=== PATIENT | male | born 1980 | race Caucasian/White ===

== ENCOUNTER 2023-07-04 19:23 | Emergency (ER) | payer MEDICAID ==
[~2023-07-04] VITALS: Ht 154.9 cm; Wt 65.8 kg
[2023-07-04 19:54] VITALS: BP 154/96; PULSE 97; RESP 18; TEMP 97.6; O2SAT 98
[2023-07-04] MEDS ORDERED: ONDANSETRON 4 MG ODT PO ONE (22:05)
[2023-07-04] MEDS ORDERED: PANTOPRAZOLE 40 MG TABEC PO ONE (22:05)
[2023-07-04] MEDS ORDERED: DICYCLOMINE HCL LIQUID 20 MG, ALUMINUM HYD/MAG/SIMETHICONE 30 ML, LIDOCAINE VISCOUS 2% ... PO ONE ×3 (22:05)
[2023-07-04] MEDS ORDERED: DICYCLOMINE HCL LIQUID 10 MG/5 ML UDC ONE (22:14)
[2023-07-04] MEDS ORDERED: ALUMINUM HYD/MAG/SIMETHICONE 30 ML UDC ONE (22:14)
[2023-07-04 22:26] LABS: BASOPHILS # (AUTO) 0.1 K/uL (0.00-0.22); BASOPHILS % (AUTO) 1.3 % (0.0-2.0); HEMATOCRIT 39.1 % (36-52); HEMOGLOBIN 13.2 g/dL (12.0-18.0); LYMPHOCYTES # (AUTO) 1.2 K/uL (2.0-11.5); LYMPHOCYTES % (AUTO) 26.7 % (20.5-51.1); MEAN CORPUSCULAR HEMOGLOBIN 30 pg (27-31); MEAN CORPUSCULAR HGB CONC 34 g/dL (33-37); MEAN CORPUSCULAR VOLUME 88.1 fL (80-94); MONOCYTES # (AUTO) 0.4 K/uL (0.8-1.0); MONOCYTES % (AUTO) 8.6 % (1.7-9.3); NEUTROPHILS # (AUTO) 2.9 K/uL (1.8-7.7); NEUTROPHILS % (AUTO) 62.4 % (42.2-75.2); PLATELET COUNT (AUTO) 111 K/uL (140-450); RED BLOOD CELL COUNT(AUTO) 4.43 MIL/uL (4.20-6.10); RED CELL DISTRIBUTION WIDTH 14.1 % (11.6-13.7); WHITE BLOOD COUNT (AUTO) 4.6 K/uL (4.8-10.8)
[2023-07-04 22:48] LABS: ALANINE AMINOTRANSFERASE 112 U/L (12-78); ALBUMIN 3.9 g/dL (3.4-5.0); ALCOHOL, BLOOD 380 mg/dL (<10); ALKALINE PHOSPHATASE 153 U/L (50-136); ANION GAP 14.9 (8-16); ASPARTATE AMINOTRANSFERASE 108 U/L (15-37); CARBON DIOXIDE 26.6 mmol/L (21-32); CHLORIDE 94 mmol/L (98-107); CREATININE 0.6 mg/dL (0.6-1.3); GFR ARICAN-AMERICAN 191 mL/min (>90); GFR NON ARICAN-AMERICAN 158 mL/min (>90); GLUCOSE 150 mg/dL (74-106); LIPASE 93 U/L (16-77); POTASSIUM 3.5 mmol/L (3.5-5.1); SODIUM SERUM 132 mmol/L (136-145); TOTAL PROTEIN, SERUM 8.6 g/dL (6.4-8.2); UREA NITROGEN, BLOOD 2 mg/dL (7-18)
[2023-07-05] MEDS ORDERED: ONDA-188 PO (03:46)
[2023-07-05] MEDS ORDERED: PANT40EC PO (03:46)
[2023-07-05] MEDS ORDERED: LORazepam 1 MG TAB PO ONE (04:55)
[2023-07-05] MEDS ORDERED: KETOROLAC 30 MG/ML VIAL IM ONE (04:55)
[2023-07-05] MEDS ORDERED: ACETAMINOPHEN EXTRA STRENGTH 500 MG TAB PO ONE (04:55)
[2023-07-05 06:19] VITALS: BP 130/93; PULSE 98; RESP 18; TEMP 98; O2SAT 98
== END 2023-07-05 06:02 | disposition home or self-care (01) ==
LOC: MED 19:23
DX: K80.20 Calculus of gallbladder without cholecystitis without obstruction (principal); F10.90 Alcohol use, unspecified, uncomplicated; E11.9 Type 2 diabetes mellitus without complications; Z79.899 Other long term (current) drug therapy; Y90.8 Blood alcohol level of 240 mg/100 ml or more
CPT/HCPCS: 36415; 71045; 76705; 80053; 83690; 84484; 85025; 93005; 96372; 99285; G0482; J1885; Q0092; Q0162